=== PATIENT | female | born 1955 | race Caucasian/White ===

== ENCOUNTER → 2016-11-30 | Outpatient (CLI) | payer OTHER ==
[~2016-11-30] MED LIST: ACETAMINOPHEN650 M1 PO; ALBUTEROL MININEB NEB; ALBUTEROL17 GM INH; ALBUTEROL2.5 MG/0.5 IH; ALBUTEROL20 ml INH; ALDACTONE25 MG PO; BACTROBAN TOP; CLEOCIN PO; CLOBETASOL 0.0560 GM TOP; COMBIVENT INH14.7 GM INH; HUMIBID-LA600 MG PO; HYDROCODON-ACE1 EAC5 PO; LASIX20 MG PO; LEVAQUIN PO; LEVAQUIN250 MG; LEVAQUIN750 MG PO; METHADONE PO; MILK OF MAGNESIA PO; NEXAVAR PO; NICOTINE TRANSD14 MG EXT; OMNICEF PO; OXYCODONE HCL10 MG PO; PHENERGAN25 MG PO; PREDNISONE PO; ROXICODONE5 MG PO; SENNA S TABLET1 TAB PO; SYMBICORT INH; VIBRAMYCIN100 M1 PO; ZOFRAN PO
--- NOTE | ~2016-11-30 | CT3 ---
[facility] A Service of [facility] & [facility] RADIOLOGY TEXT RESULTS PATIENT: DEVON GRANDE LOCATION: CCAT : 59 UNIT #: [id number] AGE: [address]: Miracle Novak MD SEX: F ORDER DR: [id number] [facility] [address] [place], [place] [address] [id number] O MR#: [id number] Acc #: [id number] NAME: DEVON GRANDE : 1955 SEX: F STUDY DATE/TIME: 11/30/2016 11:10 UNIT: CCAT ROOM: STUDY DESCRIPTION: CT Abd and Pelv WWo Cont Attending Physician: Miracle Novak M.D., Ph.D. Referring Physician: Miracle Novak M.D., Ph.D. Ordering Physician: Miracle Novak M.D., Ph.D. Primary Care Physician: Torres Leach M.D. MEDICAL IMAGING REPORT This report is preliminary unless electronic signature is present EXAM CT of the abdomen and pelvis with and without contrast INDICATION Follow up liver cancer. Right upper quadrant pain for [address] of the abdomen and pelvis was performed before and after the administration of IV contrast with a multiphase liver protocol. Coronal and sagittal reformatted images were obtained. This CT exam was performed with one or more of the following radiation dose reduction techniques: Automatic exposure control, adjustment of mA and/or kV according to patient size, and iterative reconstruction. COMPARISON Comparison is made with 11/22/2016. FINDINGS Lung bases are clear. Cirrhosis. There is a 1.5 cm enhancing lesion with washout in the lateral segment consistent with HCC. This is best seen on portal venous image number 37. There is a second smaller 1.2 cm lesion in the lateral segment of the washout consistent with HCC best seen on the portal venous phase of the study on image 32. There is an area of ill-defined enhancement in the inferior aspect of the lateral segment best seen on portal venous phase image 53 but no definite washout is associated with this area. Low-density lesions are seen elsewhere in the lateral segment without enhancement or washout. The portal vein is patent. There is a small recanalized umbilical vein. The hepatic artery is patent. Splenomegaly. There are bilateral renal cysts. The gallbladder is unremarkable. Punctate nonobstructing stone in the right kidney. The adrenal glands are unremarkable. Pancreas unremarkable. No evidence for ascites. [facility] A Service of [facility] & [facility] RADIOLOGY TEXT RESULTS PATIENT: DEVON GRANDE LOCATION: CCAT : 59 UNIT #: [id number] AGE: [address]: Miracle Novak MD SEX: F ORDER DR: PELVIS: Large amount of stool in the colon. No free fluid. The bone windows are unremarkable. IMPRESSION 1. There are 2 lesions within the lateral segment of the liver that demonstrate early enhancement and washout and are consistent with small hepatocellular carcinomas. They measure 1.5 x 1.2 cm respectively. 2. There is an area of enhancement without definite washout within the most inferior aspect of the lateral segment. This should be followed. 3. Additional findings as described. Dictated by... Shawn Jacobson M.D. THIS IS AN ELECTRONICALLY VERIFIED REPORT Shawn Jacobson M.D. at 12/06/2016 11:21 AM EUGENIO/claudine TD: 12/01/2016 15:47 JOB #: [id number] MEDICAL IMAGING REPORT Page 1 of 1 COPY
== END | disposition home or self-care (01) ==
LOC: CCAT 09:47
DX: C22.8 Malignant neoplasm of liver, primary, unspecified as to type (principal)
CPT/HCPCS: 74178; Q9967